=== PATIENT | female | born 1995 | race Caucasian/White ===

== ENCOUNTER 2017-08-11 16:14 | Emergency (ER) | END 2017-08-11 20:10 | disposition home or self-care (01) ==

== ENCOUNTER 2019-03-02 15:15 | Inpatient (IN) | payer OTHER ==
[~2019-03-02] VITALS: Ht 154.9 cm; Wt 99.3 kg
[~2019-03-02 15:15] MED LIST: FER325 PO; IBUP-1542 PO; IBUP800T48 PO; OSEL75CA23 PO; OXYC-281 PO; PRENAT PO
[2019-03-02] MEDS ORDERED: LACTATED RINGER'S 1,000 ML IV SCH (16:59)
[2019-03-02 17:00] VITALS: Ht 154.9 cm; Wt 99.3 kg
[2019-03-02] MEDS ORDERED: OXYTOCIN 30 UNITS/LR 500 ML IV PRN (17:00)
[2019-03-02] MEDS ORDERED: CARBOPROST 250 MCG INJ IM PRN (17:00)
[2019-03-02] MEDS ORDERED: METHYLERGONOVINE 0.2 MG INJ IM PRN (17:00)
[2019-03-02] MEDS ORDERED: MISOPROSTOL 200 MCG TAB PR PRN (17:00)
[2019-03-02] MEDS ORDERED: CEFAZOLIN 2 GM/50 ML (PMX) 50 ML IVPB SCH (17:00)
[2019-03-02] MEDS ORDERED: OXYTOCIN 30 UNITS/LR 500 ML IV SCH (17:00)
[2019-03-02 17:01] VITALS: BP 120/71; PULSE 87; RESP 20
--- NOTE | 2019-03-02 22:14 | PREAC ---
Date/Time of Note Date/Time of Note DATE: 03/02/19 TIME: 22:13 Anesthesia Eval and Record Evaluation Time Pre-Procedure Interview DATE: 03/02/19 TIME: 22:13 Age 23 Sex female NPO: 8 hrs Preoperative diagnosis PREVIOUS C SECTION Planned procedure REPEAT C SECTION Past Medical History Past Medical History: Includes : : (2), Para: (1), Gestational age: (39 WEEKS) Surgery & Anesthesia Issues No known issue Meds Anticoagulation: No Beta Titus within 24 hr: No Reason Beta Titus not given: Pt. not on B-Titus Reported Medications Ferrous Sulfate* (Ferrous Sulfate*) 325 Mg Tabec, 325 MG PO DAILY, TAB 06/25/14 Multivit/Min/Fol Ac/Iron/Pren* ( S*) 1 Tab Tab, 1 TAB PO, TAB 06/15/14 Current Medications Lactated Ringer's 1,000 ml @ 125 mls/hr Q8H IV Last administered on 03/02/19at 17:00; Admin Dose 125 MLS/HR; Start 03/02/19 at 16:59 Cefazolin Sodium/ Dextrose 50 ml @ 100 mls/hr ONCE IVPB ; Start 03/02/19 at 17:00 Oxytocin/Lactated Ringer's 500 ml @ 125 mls/hr POST IV ; Start 03/02/19 at 17:00 Oxytocin/Lactated Ringer's 500 ml @ 0 mls/hr ONCE PRN IV .VAGINAL BLEEDING; Start 03/02/19 at 17:00 Methylergonovine Maleate (Methergine) 0.2 mg ONCE PRN IM .VAGINAL BLEEDING; Start 03/02/19 at 17:00 Carboprost Tromethamine (Hemabate) 250 mcg ONCE PRN IM .VAGINAL BLEEDING; Start 03/02/19 at 17:00 Misoprostol (Cytotec) 1,000 mcg ONCE PRN NM .VAGINAL BLEEDING; Start 03/02/19 at 17:00 Meds reviewed: Yes Allergies Coded Allergies: No Known Drug Allergies (Verified Allergy, Unknown, 03/02/19) No Known Drug Allergy (Unverified Allergy, Unknown, 06/25/14) Allergies Reviewed: Yes Labs/Studies Labs Reviewed: Reviewed by anesthesiologist Result Diagram: 03/02/19 1655 Laboratory Tests 03/02/19 16:55 Blood Bank Test 03/02/19 16:55 Antibody Screen NEGATIVE Blood Type O POSITIVE test: N/A Pre-procedure Exam Last vitals Vital Signs Date Temp Pulse Resp B/P (MAP) Pulse Ox O2 O2 Flow FiO2 Time Delivery Rate 03/02/19 98.2 87 20 120/71 Room Air 17:01 (87) Airway: Adequate mouth opening, Adequate thyromental dist Mallampati: Mallampati II Teeth: Normal Lung: Normal Heart: Normal ASA Physical Status ASA physical status: 2 Emergency: None Planned Anesthetic Neuraxial: Epidural Planned Pain Management Epidural Pre-operative Attestations Prior to commencing anesthesia and surgery, the patient was re-evaluated, there was verification of: *The patient's identity *The results of appropriate recent lab work and preoperative vital signs *The above evaluation not changing prior to induction *Anesthetic plan, risk benefits, alternative and complications discussed with patient/family; questions answered; patient/family understands, accepts and wishes to proceed. Bar Walsh M.D. Mar 02, 2019 22:14
[2019-03-02] MEDS ORDERED: CITRIC ACID/NA CITRATE 30 ML CUP ONE (22:18)
[2019-03-02] MEDS ORDERED: OXYTOCIN 10 UNIT INJ ONE (22:22)
[2019-03-02] MEDS ORDERED: morphine SULFATE/PF (10 MG/10 ML) INJ ONE (22:22)
[2019-03-02] MEDS ORDERED: METOCLOPRAMIDE 10 MG INJ ONE (22:22)
[2019-03-02] MEDS ORDERED: HYDROmorphONE 1 MG/5 ML IV SYRINGE IV PRN ×3 (23:30)
[2019-03-02] MEDS ORDERED: TRIMETHOBENZAMIDE 100 MG/ML VIAL IM PRN ×2 (23:30)
[2019-03-02] MEDS ORDERED: IPRATROPIUM (NEB) 0.5 MG/2.5 ML AMP HHN PRN (23:30)
[2019-03-02] MEDS ORDERED: ALBUTEROL 0.083% (NEB) 2.5 MG/3 ML AMP HHN PRN (23:30)
[2019-03-02] MEDS ORDERED: morphine 2 MG INJ IV PRN ×2 (23:30)
[2019-03-02] MEDS ORDERED: EPHEDrine 25 MG/5 ML SYG IV PRN (23:30)
[2019-03-02] MEDS ORDERED: MEPERIDINE 25 MG INJ IV PRN (23:30)
[2019-03-02] MEDS ORDERED: NALOXONE (0.4 MG/ML) INJ IV PRN (23:30)
[2019-03-02] MEDS ORDERED: ONDANSETRON 4 MG INJ IV PRN ×2 (23:30)
[2019-03-02] MEDS ORDERED: hydrALAzine 20 MG INJ IV PRN (23:30)
[2019-03-02] MEDS ORDERED: NALBUPHINE HCL (10 MG/1 ML) INJ IV PRN (23:30)
[2019-03-02] MEDS ORDERED: DIPHENHYDRAMINE 50 MG INJ IV PRN ×2 (23:30)
[2019-03-02] MEDS ORDERED: MIDAZOLAM 1 MG/ML 2 ML INJ IV PRN (23:30)
[2019-03-02] MEDS ORDERED: FENTAnyl 50 MCG/ML VIAL IV PRN ×3 (23:30)
[2019-03-02] MEDS ORDERED: OXYCODONE/ACETAMINOPHEN (5/325) TAB PO PRN ×2 (23:30)
[2019-03-02] MEDS ORDERED: LABETALOL HCL 20MG INJ IV PRN (23:30)
--- NOTE | 2019-03-02 23:57 | OPPN ---
Date/Time of Note Date/Time of Note DATE: 03/02/19 TIME: 23:55 Operative Report Planned Procedure Procedure date Mar 02, 2019 Procedure(s) repeat low transverse CD Performed by see signature line Fruit Tester: MANDEEP SULTANA MD 2nd Fruit Tester none Anesthesiologist: Bar Walsh M.D. Pre-procedure diagnosis iup at 39 wks ga, previous CD, desires elective repeat CD, decline [id number] Anesthesia Type: [id number] spinal Post-Procedure Post-procedure diagnosis same Findings a viable male 8/9, weight 3,450 grams. normal uterus tubes and ovaries Estimated Blood Loss: 500 - 600 mls (500) Specimen(s) none Grafts/Implant(s) none Complication(s) none TYRON WELLINGTON MD Mar 02, 2019 23:57
[2019-03-03] MEDS ORDERED: OXYTOCIN 30 UNITS/LR 500 ML IV PRN
[2019-03-03] MEDS ORDERED: OXYTOCIN 30 UNITS/LR 500 ML IV SCH
[2019-03-03] MEDS ORDERED: METHYLERGONOVINE 0.2 MG INJ IM PRN
[2019-03-03] MEDS ORDERED: NACL 0.9% 3 ML SYG IV SCH
[2019-03-03] MEDS ORDERED: OXYCODONE/ACETAMINOPHEN (5/325) TAB PO PRN
[2019-03-03] MEDS ORDERED: CEFAZOLIN 2 GM/50 ML (PMX) 50 ML IVPB SCH
[2019-03-03] MEDS ORDERED: CARBOPROST 250 MCG INJ IM PRN
[2019-03-03] MEDS ORDERED: LANOLIN HPA 1 PKT TOP PRN
[2019-03-03] MEDS ORDERED: MISOPROSTOL 200 MCG TAB PR PRN
--- NOTE | 2019-03-03 01:57 | PREOPHP ---
DATE OF ADMISSION: 03/02/2019 HISTORY OF PRESENT ILLNESS: Ms. Jumana Gonzalez is a 23-year-old, 2, para 1, EDC 03/09/2019, i ntrauterine at 39 weeks gestational age, admitted today for elective repeat delive ry. She denies any contractions or vaginal bleeding. care took place at [facility]. PAST MEDICAL HISTORY: None MEDICATIONS: vitamins. PAST SURGICAL HISTORY: x1 previous section. OBSTETRIC HISTORY: x1 previous section. GYNECOLOGIC HISTORY: 12, regular, 3 to 4 days. Denies any sexually transmitted infections. Sexuall y active with 1 partner. SOCIAL HISTORY: Denies any smoking, drugs or alcohol. FAMILY HISTORY: None. REVIEW OF SYSTEMS: All within normal except for history of present illness. PHYSICAL EXAMINATION: HEENT: Within normal. LUNGS: CTA bilateral. CARDIOVASCULAR: S1, S2, regular rhythm. ABDOMEN: Gravid, nontender. Negative CVA bilateral. EXTREMITIES: Negative edema. No calf tenderness. PELVIC: Vaginal exam deferred. ASSESSMENT: Intrauterine at 39 weeks' gestational age, previous section x1, jude es elective repeat delivery. Declined vaginal after . PLAN: Consent for repeat delivery. Risks, benefits and alternatives explained. All questi ons were answered. Dictated By: TYRON HARVEY/SISSY Conf#: [id number] DID#: [id number]
[2019-03-03 03:00] VITALS: BP 112/60; PULSE 77; RESP 18
--- NOTE | 2019-03-03 03:04 | OPR ---
DATE OF OPERATION: 03/02/2019 PREOPERATIVE DIAGNOSIS: Intrauterine at 39 weeks' gestational age, previous secti on x1, desires elective repeat delivery. POSTOPERATIVE DIAGNOSIS: Intrauterine at 39 weeks' gestational age, previous sect ion x1, desires elective repeat delivery. OPERATION PERFORMED: Repeat low transverse delivery. SURGEON: Reji Valenzuela MD. ENVIRONMENTAL HEALTH AND SAFETY LEADER: Kimmie Stack MD ANESTHESIA: Spinal. ANESTHESIA: Dr. Bar Walsh. COMPLICATIONS: None. ESTIMATED BLOOD LOSS: 500 mL. FINDINGS: A viable male, 8 and 9 respectively at 1 and 5 minutes, weight 3450 grams. Normal u terus, tubes and ovaries. DESCRIPTION OF PROCEDURE: After explaining the risks, benefits and alternatives, and the patient had consent signed in chart, the patient was taken to the operating room where spinal anesthesia was fou nd to be adequate. She was then prepared and draped in the normal sterile fashion in dorsal position with a leftward tilt. A Pfannenstiel skin incision was then made with a scalpel and carried to the underlying fascia. The fascia was incised in midline. The incision was extended laterally with Fowler scissors. The superior aspect of the fascial incision was grasped with curved clamps, elevated and the underlying rectus muscles dissected off bluntly. Attention was then turned to the inferior aspec t incision which in a sterile fashion was grasped with curved clamps, elevated and the underlying rec tus muscles dissected off bluntly. The rectus muscles were in the midline and peritoneum i dentified, tented up and entered sharply with Metzenbaum scissors. The peritoneal incision was exten ded superiorly and inferiorly with good visualization of the bladder. The bladder blade was inserted and the lower uterine segment was incised in a transverse fashion with the scalpel. The uterine inc ision was extended laterally. The bladder blade was removed and the infant's head delivered atraumat ically. The nose and mouth were suctioned, cord clamped and cut. The was handed off to [facility] dialysis clinical manager. The placenta was then removed. The uterus was exteriorized and cleared of all clot s and debris. The uterine incision was repaired with 1-0 chromic in a running locked fashion. A sec ond layer of same suture was used for imbrication obtaining excellent hemostasis. The uterus was ret urned to the abdomen. The gutters were cleared of all clots. The peritoneum and rectus abdominis mu scles were reapproximated with 2-0 Vicryl in an interrupted fashion. The fascia was reapproximated w ith 0 Vicryl in a running fashion. The subcutaneous tissue was reapproximated with 2-0 plain gut in a running fashion. The skin was closed with absorbable jalil. The patient tolerated the procedure well. The patient was taken to the PACU in stable condition. All counts were correct. Dictated By: REJI HARVEY/SISSY Conf#: [id number] DID#: [id number]
[2019-03-03] MEDS ORDERED: CITRIC ACID/NA CITRATE 30 ML CUP PO ONE (03:30)
[2019-03-03] MEDS: KETOROLAC 30 MG INJ IV PRN ×3 (04:28→18:49)
[2019-03-03 08:30] VITALS: BP 108/61; PULSE 88; RESP 19
[2019-03-03] MEDS: CEFAZOLIN 2 GM/50 ML (PMX) 50 ML IVPB SCH ×2 (09:50→17:19)
[2019-03-03 12:10] VITALS: BP 116/70; PULSE 81; RESP 19
[2019-03-03 15:44] VITALS: BP 102/64; PULSE 78; RESP 18
--- NOTE | 2019-03-03 18:26 | PAC ---
Date/Time of Note Date/Time of Note DATE: 03/03/19 TIME: 18:26 Post-Anesthesia Notes Post-Anesthesia Note Last documented vital signs Vital Signs Date Temp Pulse Resp B/P (MAP) Pulse Ox O2 O2 Flow FiO2 Time Delivery Rate 03/03/19 98.4 78 18 102/64 98 Room Air 15:44 (77) Activity: WNL Respiratory function: WNL Cardiovascular function: WNL Mental status: Baseline Pain reasonably controlled: Yes Hydration appropriate: Yes Nausea/Vomiting absent: Yes Bar Walsh M.D. Mar 03, 2019 18:26
--- NOTE | 2019-03-03 19:04 | QN ---
Documentation Comment progress note pod 1 patient seen and evaluated no complaints vs stable afebrile ab dressing clean/dry no distent extremity no edema no calf tenderness a/ sp cd pod 1 stable afebrile p/ cbc TYRON WELLINGTON MD Mar 03, 2019 19:04
[2019-03-03 19:40] VITALS: BP 123/73; PULSE 67; RESP 19
[2019-03-03] MEDS: IBUPROFEN 800 MG TAB PO SCH (22:00)
[2019-03-03] MEDS ORDERED: ONDANSETRON 4 MG TAB PO PRN (23:30)
[2019-03-03] MEDS: OXYCODONE/ACETAMINOPHEN (5/325) TAB PO PRN (23:40)
[2019-03-04] VITALS: BP 126/81; PULSE 75; RESP 20
[2019-03-04] MEDS: OXYCODONE/ACETAMINOPHEN (5/325) TAB PO PRN ×3 (00:30→18:25)
[2019-03-04] MEDS: CEFAZOLIN 2 GM/50 ML (PMX) 50 ML IVPB SCH (00:32)
[2019-03-04 04:00] VITALS: BP 123/63; PULSE 73; RESP 19
--- NOTE | 2019-03-04 04:06 | DELSUM ---
Delivery Summary A-C Datetime Report Generated by CPN: 03/04/2019 04:06 DELIVERY PERSONNEL Php Wordpress Developer: Nuha, Kitty MATERNAL INFORMATION Delivery Anesthesia: Spinal Medications in Delivery: SEE ANESTHESIA RECORDS Delivery QBL (ml): 500 Placenta Cultured: No Maternal Complications: None LABOR SUMMARY EDC: 03/09/2019 00:00 No. Babies in Womb: 1 Attempted: No Labor Anesthesia: None LABOR INFORMATION Reason for Induction: Not Applicable Group B Beta Strep: Negative Antibiotics # of Doses: 1 Antibiotics Time of Last Dose: 03/03/2019 22:51 Steroids Given: None Reason Steroids Not Administered: Not Applicable MEMBRANES Membranes Rupture Method: Artificial Rupture of Membranes: 03/03/2019 23:30 Length of Rupture (hr): -23.98 Amniotic Fluid Color: Clear Amniotic Fluid Amount: Moderate Amniotic Fluid Odor: None STAGES OF LABOR Stage 3 hr: 0 Stage 3 min: 1 CSECTION DELIVERY Primary Indication: Repeat Elective CSection Urgency: Elective CSection Incidence: Repeat Labor: No Labor Elective: Elective CSection Incision: Lower Uterine Transverse BABY A INFORMATION Delivery Date/Time: 03/02/2019 23:31 Method of Delivery: Born in Route : No : N/A Forceps: N/A Vacuum Extraction: N/A Shoulder Dystocia : N/A SHOULDER DYSTOCIA BABY A Infant Delivery Date/Time: 03/02/2019 23:31 PRESENTATION/POSITION BABY A Presentation: Cephalic Cephalic Presentation: Vertex Vertex Position: N/A Breech Presentation: N/A PLACENTA INFORMATION BABY A Placenta Delivery Time : 03/02/2019 23:32 Placenta Method of Delivery: Manual Removal Placenta Status: Delivered SCORES BABY A Heart Rate 1 min: >100 bpm Resp Effort 1 min: Good Cry Reflex Irritability 1 min: Cough/Sneeze/Pulls Away Muscle Tone 1 min: Active Motion Color 1 min: Blue/Pale Resuscitation Effort 1 min: Tactile Stimulation SCORE 1 MIN: 8 Heart Rate 5 min: >100 bpm Resp Effort 5 min: Good Cry Reflex Irritability 5 min: Cough/Sneeze/Pulls Away Muscle Tone 5 min: Active Motion Color 5 min: Body [place], Extremit Blue Resuscitation Effort 5 min: Tactile Stimulation SCORE 5 MIN: 9 INFANT INFORMATION BABY A Gestational Age at Delivery: 39.0 Gestational Status: Full Term- 39- 40.6 Weeks Infant Outcome : Liveborn, with signs of life Condition : Stable Sex: Female IDENTIFICATION/MEDS BABY A ID Band Number: [id number] ID Band Location: Right Leg; Left Arm Sensor Applied: Yes Sensor Number: [id number] Sensor Location : Cord Clamp Vitamin K Given : Not Given Erythromycin Given: Not Given WEIGHT/LENGTH BABY A Birthweight (gm): 3450 Weight (lb): 7 Weight (oz): 10 Infant Length (in): 20.00 Infant Length (cm): 50.80 CORD INFORMATION BABY A No. Cord Vessels: 3 Nuchal Cord : Around Neck x2, Loose Cord Blood Taken: Yes Infant Suction: Mouth; Nose ASSESSMENT BABY A Infant Complications: None Physical Findings at Delivery: Within Normal Limits Infant Respirations: Appears Normal Leather Toggler/ALS Called : Yes Care By: RT RN Transferred To: Remains with Mother
[2019-03-04] MEDS: IBUPROFEN 800 MG TAB PO SCH ×3 (05:50→21:55)
[2019-03-04 08:00] VITALS: BP 113/59; PULSE 67; RESP 18
--- NOTE | 2019-03-04 13:06 | QN ---
Documentation Comment progress note pod 2 patient seen and evaluated no complaints vs stable afebrile ab c/d/i no distent extremity no edema no calf tenderness a/ sp cd pod 2 stable afebrile p/ discharge home tomorrow TYRON WELLINGTON MD Mar 04, 2019 13:06
--- NOTE | 2019-03-04 13:08 | PD.PPDC ---
CLINICAL AUDITOR Discharge Instruction Condition [id number] Patient Condition: Skkmw5l Good Diet [id number] Diet: Cckfk8v Resume Regular Diet Activity/Restrictions Sahwm8Cs Activity: Zryuw0b Normal Activity May Shower Vsbcf2Cu Restrictions: Uwcxn3t No Exercising No Lifting No Driving No Sexual Activity Nothing in the Vagina No [place] No Tampons, douche Follow-up Follow-up with Physician: 2, Week/Weeks Return to clinic for Knfqq7Er PORTRAIT PHOTOGRAPHER Instructions: Luyye5k Fever greater than 101 Chills Worsening abdominal pain Excessive Vaginal Bleeding More than 2 pads per hour Unable to tolerate diet [id number] OB Instructions: Zhbsc7q Breast Tenderness Depression Blurried Vision Headache [id number] Surgical Instructions: Cbkqa5p Incisional Drainage Incisional Redness TYRON WELLINGTON MD Mar 04, 2019 13:08
[2019-03-04 16:00] VITALS: BP 118/83; PULSE 82; RESP 18
[2019-03-04 20:00] VITALS: BP 120/79; PULSE 79; RESP 20
[2019-03-05 02:38] VITALS: BP 121/68; PULSE 74; RESP 20
[2019-03-05] MEDS: IBUPROFEN 800 MG TAB PO SCH ×3 (05:33→22:36)
[2019-03-05 08:50] VITALS: BP 136/86; PULSE 73; RESP 22
[2019-03-05] MEDS ORDERED: BISACODYL 10 MG SUPP PR ONE ×2 (15:00→16:30)
--- NOTE | 2019-03-05 16:09 | QN ---
Documentation Comment Postop day #3 Status post repeat Patient stable and afebrile Patient has not had regular diet yet, positive ambulating, positive flatus but no BM She is complaining of gas pain Vital signs stable VS - Last 72 Hours, by Label Date Temp Pulse Resp B/P (MAP) Pulse Ox O2 O2 Flow FiO2 Time Delivery Rate 03/05/19 98.1 73 22 136/86 Room Air 08:50 (103) 03/05/19 98.4 74 20 121/68 Room Air 02:38 (85) 03/04/19 98.1 79 20 120/79 Room Air 20:00 (93) 03/04/19 98.5 82 18 118/83 Room Air 16:00 (95) 03/04/19 97.8 67 18 113/59 Room Air 08:00 (77) 03/04/19 98.6 73 19 123/63 Room Air 04:00 (83) 03/04/19 98.3 75 20 126/81 Room Air 00:00 (96) 03/03/19 98.2 67 19 123/73 97 19:40 (90) 03/03/19 98.4 78 18 102/64 98 Room Air 15:44 (77) 03/03/19 98.3 81 19 116/70 97 Room Air 12:10 (85) 03/03/19 98.8 88 19 108/61 94 Room Air 08:30 (77) 03/03/19 98.2 77 18 112/60 95 Room Air 03:00 (77) 03/02/19 98.2 87 20 120/71 Room Air 17:01 (87) Hematology - 72 Hrs Test 03/02/19 16:55 03/03/19 19:20 03/04/19 04:26 Hematocrit 31.7 % (37.0-47.0) 28.9 % (37.0-47.0) 27.7 % (37.0-47.0) L L L Hemoglobin 9.8 8.9 8.5 g/dl (12.0-16.0) L g/dl (12.0-16.0) g/dl (12.0-16.0) L L Mean Corpuscular 26.3 pg (29.0-33.0) 26.5 26.4 Hemoglobin L pg (29.0-33.0) L pg (29.0-33.0) L Mean Corpuscular 30.9 30.8 30.7 Hemoglobin Concent g/dl (32.0-37.0) L g/dl (32.0-37.0) g/dl (32.0-37.0) L L Mean Corpuscular 85.2 86.0 86.0 Volume fl (82.0-101.0) fl (82.0-101.0) fl (82.0-101.0) Mean Platelet 10.9 fl (7.4-10.4) 10.8 fl (7.4-10.4) 11.0 fl (7.4-10.4) Volume #H H H Platelet Count 321 286 309 10^3/UL (140-415) 10^3/UL (140-415) 10^3/UL (140-415) Red Blood Count 3.72 3.36 3.22 10^6/ul (4.20-5.40) 10^6/ul (4.20-5.40 10^6/ul (4.20-5.40 L ) L ) L Red Cell 13.8 % (11.5-14.5) 13.9 % (11.5-14.5) 14.0 % (11.5-14.5) Distribution Width White Blood Count 9.1 10.5 12.7 10^3/ul (4.8-10.8) 10^3/ul (4.8-10.8) 10^3/ul (4.8-10.8) #H Abdomen soft, fundus firm Incision clean,dry,intact Extremities nontender Assessment and plan Patient stable and doing well She does not desire to be discharged home secondary to the gas pain Encouraged to ambulate Continue with routine postop care KIMBERLYN BEGUM MD Mar 05, 2019 16:09
[2019-03-05 16:50] VITALS: BP 118/87; PULSE 81; RESP 16
[2019-03-05 20:00] VITALS: BP_SYST 75; PULSE 77; RESP 16
[2019-03-06] MEDS: OXYCODONE/ACETAMINOPHEN (5/325) TAB PO PRN ×2 (00:37→14:51)
[2019-03-06] MEDS: IBUPROFEN 800 MG TAB PO SCH ×2 (05:51→13:31)
[2019-03-06 08:15] VITALS: BP 117/81; PULSE 70; RESP 16
[2019-03-06] MEDS ORDERED: DIPHTH/TET/ACEL PERTUSS (ADULT) 0.5 ML VIAL IM* ONE (10:00)
--- NOTE | 2019-03-06 10:07 | QN ---
Documentation Comment progress note pod 4 patient seen and evaluated positive bowel movement/ voiding tolerating regular diet no complaints vs stable afebrile ab c/d/i no distent extremity no edema no calf tenderness a/ sp cd pod 4 stable afebrile p/ discharge home tomorrow TYRON WELLINGTON MD Mar 06, 2019 10:07
--- NOTE | 2019-03-07 09:03 | DS ---
DATE OF ADMISSION: 03/02/2019 DATE OF DISCHARGE: 03/07/2019 PRIMARY DIAGNOSES: 1. Intrauterine at 39 weeks' gestational age. 2. Previous section x1. 3. Desires elective repeat delivery. PROCEDURE: Repeat low transverse delivery. CONDITION ON DISCHARGE: Stable. ACTIVITY: None per vagina, no heavy lifting x6 weeks. DIET: Regular. MEDICATIONS ON DISCHARGE: 1. Motrin. 2. Iron. 3. Colace. DISCHARGE SUMMARY: Ms. Dov Gonzalez underwent a repeat low transverse delivery on 03/02/2019. She had a viable male, Apgars 8 and 9 respectively at 1 and 5 minutes, weight 3450 grams. She had an uneventful postop day 1 , 2and 3. She was discharged on postop day 4. Her incision is clean, dry, and intact. She is ambulating, tolerating diet, positive flatulence, positive bowel movement. She will follow up in the clinic in 2 weeks for /postop care. Dictated By: TYRON HARVEY/SISSY Conf#: [id number] DID#: [id number]
== END 2019-03-06 16:25 | disposition home or self-care (01) | DRG 788 ==
LOC: L-D 15:15 → PP1 16:43 → L-D 22:54 → MS1 03-03 04:28 → EDSTATUS 03-09 15:13
PROVIDERS: ADMIT Obstetrics & Gynecology; ATTEND Obstetrics & Gynecology
PROC: 10D00Z1 Extraction of Products of Conception, Low, Open Approach (ICD-10-PCS; principal; 2019-03-02)
DX: O34.211 Maternal care for low transverse scar from previous cesarean delivery (principal); Z3A.39 39 weeks gestation of pregnancy; Z37.0 Single live birth
CPT/HCPCS: 85025; 85610; 85730; 86592; 86850; 86900; 86901; 87340; 90715; 99464; J0690; J1885; J2270; J2274; J2590; J2765; J7120